=== PATIENT | male | born 1945 | race Caucasian/White ===

== ENCOUNTER 2018-03-12 10:05 | Emergency (ER) | payer MEDICARE ==
[2018-03-12 10:21] VITALS: BP 148/95
--- NOTE | 2018-03-12 10:53 | UC ---
Lower Extremity/Ankle HPI - HPI Summary HPI Summary: He has a hx of gout mainly in the left foot but now he has swelling, redness, tenderness and heat in the right foot around the lateral metatarsals. No fever or chills. He says this is similar in color and feel to prior gout. There may have been an injury where he was stepping onthe brake of his tractor repeatedly one day 6 weeks ago. He also had days of hunting on uneven ground the last few weeks. Over the past two weeks, he has had intermittent redness like today but then 4-5 days now he has had continuous redness and worsening pain. No fever or chills and it is localized. - History of Current Complaint Chief Complaint: UCLowerExtremity Stated Complaint: RIGHT FOOT PAIN/SWELLING Time Seen by Provider: 03/12/18 10:36 Hx Obtained From: Patient Onset/Duration: Gradual Onset, Lasting Days Severity Initially: Mild Severity Currently: Moderate Pain Intensity: 0 Aggravating Factor(s): Standing, Ambulation Alleviating Factor(s): Rest, Elevation Able to Bear Weight: Yes - Allergies/Home Medications Allergies/Adverse Reactions: Allergies Allergy/AdvReac Type Severity Reaction Status Date / Time No Known Allergies Allergy Verified 08/12/15 09:21 Home Medications: Home Medications Ibuprofen TAB* [Advil TAB*] 400 mg PO Q6H PRN 03/12/18 [History Confirmed ] PMH/Surg Hx/FS Hx/Imm Hx Previously Healthy: No - No kidney disease. he normally takes motrin for gout, no dm. - Surgical History Surgical History: Yes Surgery Procedure, Year, and Place: b/l hip replacement - Family History Known Family History: Positive: None - Social History Alcohol Use: Occasionally Alcohol Amount: 1 Substance Use Type: Marijuana Substance Use Comment - Amount & Last Used: occasional Smoking Status (MU): Former Smoker - Immunization History Most Recent Tetanus Shot: about 12/2014 Review of Systems All Other Systems Reviewed And Are Negative: Yes Skin: Positive: Other - redness and warmth of the foot. Musculoskeletal: Positive: Arthralgia, Edema, Myalgia Physical Exam Triage Information Reviewed: Yes Appearance: Pain Distress - he favors right foot when walking to x ray. Vital Signs: Initial Vital Signs Temp 97 F 03/12/18 10:18 Pulse 61 03/12/18 10:18 Resp 16 03/12/18 10:18 BP 148/95 03/12/18 10:18 Pulse Ox 98 03/12/18 10:18 Vital Signs Reviewed: Yes Eyes: Positive: Conjunctiva Clear. Negative: Conjunctiva Inflamed ENT: Positive: Normal ENT inspection Neck: Positive: Supple, Nontender, No Lymphadenopathy Respiratory: Positive: Lungs clear, Normal breath sounds, No respiratory distress, No accessory muscle use Cardiovascular: Positive: Brisk Capillary Refill. Negative: Tachycardia - steffany pedal pulses intact. Abdomen Description: Positive: Nontender, No Organomegaly. Negative: Distended , Guarding Musculoskeletal: Positive: Edema @ - right dorsolateral foot. There is tenderness of the area without spreading up the foot. It is warm, pink and slightly dusky. The distal toes are normal and pink and no mottled or dusky. Neurological: Positive: Alert, Muscle Tone Normal. Negative: Fatigued Psychological: Positive: Age Appropriate Behavior Skin: Positive: Other Diagnostics - Radiology No standard instances Radiology Interpretation Completed By: ED Physician, Radiologist - No fx or obviuios osteomyelitis. Lower Extremity Course/Dx - Course Course Of Treatment: No spreading, intermittnt over two weeks and he states this looks and feels similar to prior gout. NO fever or chills or tachycardia. We will treat with cholchicine and he will return for any worsening or signs of infection which were described in detail. - Differential Dx/Diagnosis Differential Diagnosis/HQI/PQRI: Arthritis, Bursitis, Cellulitis, Compartment Syndrome, Contusion, DVT, Fracture (Closed), Gout, Infection, Osteomyelitis, Phlebitis, Septic Arthritis, Sprain, Strain, Tendonitis, Tenosynovitis Provider Diagnosis: Gout attack Discharge - Sign-Out/Discharge Documenting (check all that apply): Patient Departure All imaging exams completed and their final reports reviewed: Yes - Discharge Plan Condition: Good Disposition: HOME Prescriptions: Colchicine* [Colcrys*] 0.6 mg PO Q2HR #9 tab MDD 3 Patient Education Materials: Gout (ED), Low Purine Diet (ED) Referrals: Yelitza OLIVERA,[place] [Primary Care Provider] - 2 Days - Billing Disposition and Condition Condition: GOOD Disposition: Home
== END 2018-03-12 11:14 | disposition home or self-care (01) ==
LOC: UCCORT 10:05
DX: M10.9 Gout, unspecified (principal); Z87.891 Personal history of nicotine dependence
CPT/HCPCS: 99212; G0463